=== PATIENT | male | born 1965 | race Caucasian/White ===

== ENCOUNTER 2018-02-12 18:29 | Emergency (ER) | payer BC ==
--- NOTE | 2018-02-12 18:34 | EDM.PDOC ---
ED HPI GENERAL MEDICAL PROBLEM - General Chief Complaint: Lower Extremity Injury/Pain Stated Complaint: INJURY TO ANKLE Time Seen by Provider: 02/12/18 18:30 Source of Information: Reports: Patient History Limitations: Reports: No Limitations - History of Present Illness INITIAL COMMENTS - FREE TEXT/NARRATIVE: According to patient [place] was [place] and was walking toward his truck and stepped on a sheet of ice and twisted his left ankle. He claims he has been hurting on the medial aspect of the ankle. Since the injury he has not bear any weight and has been crutch walking. No other injuries. Onset: Today Onset Date: 02/12/18 Onset Time: 16:00 Location: Reports: Lower Extremity, Right Quality: Reports: Ache Severity: Moderate Improves with: Reports: None Worsens with: Reports: None Context: Reports: Activity Associated Symptoms: Denies: Confusion, Chest Pain, Cough, Fever/Chills, Nausea/ Vomiting, Rash, Seizure, Shortness of Breath, Syncope, Weakness - Related Data Allergies Allergy/AdvReac Type Severity Reaction Status Date / Time blue dye Allergy Swollen Verified 02/12/18 18:32 Eyes Iodinated Contrast- Oral and Allergy Airway Verified 02/12/18 18:32 IV Dye Tightness Home Meds: Home Meds NK [No Known Home Meds] 11/04/15 [History] Past Medical History Other Gastrointestinal History: Inguinal Hernia Other Endocrine/Metabolic History: Borderline Diabetic, BS Elevated Social & Family History - Tobacco Use Smoking Status *Q: Former Smoker Years of Tobacco use: 2 Packs/Tins Daily: 1 - Recreational Drug Use Recreational Drug Use: Yes Drug Use in Last 12 Months: No Recreational Drug Type: Reports: Marijuana/Hashish Review of Systems - Review of Systems Review Of Systems: See Below Constitutional: Denies: Fever, Weakness Eyes: Denies: Blurred Vision Ears: Denies: Dizziness, Pain Nose: Denies: Epistaxis Mouth/Throat: Denies: Painful Swallowing Respiratory: Denies: Cough, Sputum Cardiovascular: Denies: Chest Pain GI/Abdominal: Denies: Nausea, Vomiting Musculoskeletal: Reports: Joint Pain. Denies: Joint Swelling Skin: Denies: Bruising, Erythema ED EXAM, GENERAL - Physical Exam Exam: See Below Exam Limited By: No Limitations General Appearance: Alert, WD/WN, No Apparent Distress Eye Exam: Bilateral Eye: EOMI, PERRL Ears: Normal External Exam, Normal Canal, Hearing Grossly Normal, Normal TMs Ear Exam: Bilateral Ear: Auricle Normal, Canal Normal, TM normal Nose: Normal Inspection, Normal Mucosa, No Blood Head: Atraumatic, Normocephalic Neck: Normal Inspection, Supple, Non-Tender, Full Range of Motion Respiratory/Chest: No Respiratory Distress, Lungs Clear, Normal Breath Sounds, No Accessory Muscle Use, Chest Non-Tender Cardiovascular: Normal Peripheral Pulses, Regular Rate, Rhythm, No Edema, No Gallop, No JVD, No Murmur, No Rub Extremities: Normal Inspection, Normal Range of Motion, Other (Left ankle: ther is no obvious deformity, swelling or bruising of the ankle. good AROM And PROM. Mild tender over the distal medial maleolus. ) Course - Vital Signs Text/Narrative:: Pt has Good ROM and also no deformity of the ankle. His left ankle xray is normal. pt reassured that he has grade 1 sprain of his left ankle. vangie wrap applied. Okay to weight bear on the foot. Pt was able to weight bear and walk with minimal discomfort. Motrin 800mg 3 times daily. Cold compresses 3-4 times daily. Followup with his primary care provider next week. - Orders/Labs/Meds Orders: Active Orders 24 hr Category Date Time Status Ankle Min 3V Lt [CR] Stat Exams 02/12/18 18:33 Taken Departure - Departure Time of Disposition: 19:20 Disposition: Home, Self-Care 01 Condition: Good Clinical Impression: Left ankle sprain - Discharge Information Instructions: Ankle Sprain, [id number] Referrals: PCP,None [Primary Care Provider] - Forms: ED Department Discharge - Problem List & Annotations (1) Left ankle sprain SNOMED Code(s): 86853275 Code(s): S93.402A - SPRAIN OF UNSPECIFIED LIGAMENT OF LEFT ANKLE, INIT ENCNTR Status: Acute Current Visit: Yes - Problem List Review Problem List Initiated/Reviewed/Updated: Yes - My Orders Last 24 Hours: My Active Orders 02/12/18 18:33 Ankle Min 3V Lt [CR] Stat - Assessment/Plan Last 24 Hours: My Active Orders 02/12/18 18:33 Ankle Min 3V Lt [CR] Stat Assessment:: Left ankle Grade 1 sprain Plan: Pt has Good ROM and also no deformity of the ankle. His left ankle xray is normal. pt reassured that he has grade 1 sprain of his left ankle. vangie wrap applied. Okay to weight bear on the foot. Pt was able to weight bear and walk with minimal discomfort. Motrin 800mg 3 times daily. Cold compresses 3-4 times daily. Followup with his primary care provider next week.
[2018-02-12 19:45] VITALS: BP 138/86
--- NOTE | 2018-02-13 23:27 | CR ---
DATE OF SERVICE: 02/12/2018 CLINICAL DATA: Left ankle injury. LEFT ANKLE: There are mild osteoarthritic changes involving multiple joints. No acute fracture or dislocation. No lytic or blastic bone lesions. [id number] [facility]
== END 2018-02-12 19:20 | disposition home or self-care (01) ==
LOC: LB.ED 18:29
DX: S93.402A Sprain of unspecified ligament of left ankle, initial encounter (principal); Z91.041 Radiographic dye allergy status; Z87.891 Personal history of nicotine dependence; X50.1XXA Overexertion from prolonged static or awkward postures, initial encounter
CPT/HCPCS: 73610-LT; 99283